=== PATIENT | male | born 1985 | race Native Hawaiian/Other Pacific Islander ===

== ENCOUNTER 2016-08-20 17:06 | Emergency (ER) | payer SELFPAY ==
[~2016-08-20] VITALS: Ht 182.9 cm; Wt 172.7 kg
[2016-08-20 17:21] VITALS: BP 138/102; PULSE 93; RESP 16; O2SAT 96
--- NOTE | 2016-08-20 18:05 | ED.REPORT ---
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 He was walking down the stairs when he rolled his right ankle to the side. He is able to walk with a slight limp. Nursing Notes Stated Complaint: RIGHT ANKLE PAIN Chief Complaint: Extremity Trauma Nursing Notes Reviewed: Yes Allergies: Coded Allergies: No Known Allergies (Unverified , 08/20/16) No Active Prescriptions or Reported Meds General Time Seen by MD: 18:04 Chief Complaint Ankle injury right Hx Obtained From: Patient Arrived By: Walk-in Onset Occurred: Just prior to arrival Symptom Duration: Since onset Location: : Ankle right Quality: Painful Severity: Current: Moderate Recent Healthcare: No recent doctor visit, No recent hospitalization Similar Sx Previous: No Past Medical History Past Medical History denies Past Surgical History denies Smoking History Unknown if Ever Smoker Social History Other Social History: Good social support, , Local resident Ambulatory Status Independent Review of Systems Musculoskeletal: Reports: Joint pain (right ankle), Joint swelling (right ankle ) Complete sys rev & neg: except as marked. Physical Exam Initial Vital Signs Vital Signs (First) Date Time Temp Pulse Resp B/P Pulse Ox O2 Delivery O2 Flow Rate FiO2 08/20/16 17:21 37.1 93 16 138/102 96 Room Air Initial VS: Reviewed General/Constitutional: Well-developed, Well-nourished Head / Eyes: Atraumatic, Normocephalic, PERRL ENT: Mucous membranes moist Respiratory: Breath sounds normal, Clear to auscultation Cardiovascular: Regular rate & rhythm, Heart sounds normal Abdomen / GI: Soft, Non-tender, No guarding, No rebound Lower Extremity / Pelvis / MS: Atraumatic, Inspection NL Right Ankle: Positive: Swelling present... lateral right ankle swelling no proximal swelling Interpretation & Diagnostics X-Ray Interpretation Xray Interpretation: IMPRESSION: No visualized acute fracture or dislocation. However, if clinical concern and/or pain persist, short interval imaging followup in 7-10 days is recommended, as occult injury cannot be definitively excluded. Dictated by: Yudy Sanchez M.D. on 08/20/2016 at 18:05 Approved by: Yudy Sanchez M.D. on 08/20/2016 at 18:06 X-Ray Ordered: Ankle right Interpretation / Wet Read by: Interpret - Radiologist Interpretation: Normal exam Re-Eval/Medical Decision Med Decision/Clinical Course No fracture seen on initial x-rays. We will immobilize and crutch training. Short course of [place] for pain. Orthopedic referral. Repeat x-rays in 7 days if pain persists. Counseled Regarding: Diagnosis, Lab results, Need for follow-up, When/why to return to ED Discharge & Departure Impression: Primary Impression: Right ankle sprain Encounter type: initial encounter Involved ligament of ankle: unspecified ligament Qualified Code: S93.401A - Sprain of unspecified ligament of right ankle, initial encounter Disposition: Home Discharge Condition All VS Reviewed: Yes Condition: Stable Patient Instructions: Ankle Sprain (GEN), Crutch Instructions (ED) Additional Instructions: Wear the boot and use crutches for all ambulation. Your x-rays did not show a fracture. You may take 1-2 [place] every 6 hours as needed for severe pain. Do not drive or drink alcohol consume acetaminophen for taking the [place]. If the pain persists beyond 7-10 days that he should have follow-up x-rays. Discuss this with either your primary care or the referral orthopedic surgeon. Either way call Sunday to set up a follow-up. Return if any problems or any worsening symptoms. Referrals: Herbert Martínez MD Attestation Portion of this note were transcribed by Jaci Elena. I, Dr. Stern, personally performed the history, physical exam, and medical decision-making: I reviewed and confirmed the accuracy for the information in the transcribed note. Signed by: ralph Perez, 08/20/16 1900 copies to: Herbert Martínez MD, Todd P DO Aug 20, 2016 18:05 Jaci Elena Aug 20, 2016 18:15
--- NOTE | 2016-08-20 18:08 | DRSVH ---
PROCEDURE: X-RAY RIGHT ANKLE, MINIMUM THREE VIEWS ([id number]) INDICATIONS: trauma, right ankle pain TECHNIQUE: 3 views of the ankle were acquired. COMPARISON: None. FINDINGS: Bones: No fractures or dislocations. Ankle mortise is normally aligned. No suspicious bony lesions . Soft tissues: No tibiotalar joint effusion. Achilles tendon appears normal. IMPRESSION: No visualized acute fracture or dislocation. However, if clinical concern and/or pain pe rsist, short interval imaging followup in 7-10 days is recommended, as occult injury cannot be defini tively excluded. Dictated by: Yudy Sanchez M.D. on 08/20/2016 at 18:05 Approved by: Yudy Sanchez M.D. on 08/20/2016 at 18:06
[2016-08-20] MEDS ORDERED: HYDROcodone-APAP 5-325 mg Tablet PO ONE (18:10)
== END 2016-08-20 18:35 | disposition home or self-care (01) ==
LOC: SED 17:06
DX: S93.401A Sprain of unspecified ligament of right ankle, initial encounter (principal); X50.0XXA Overexertion from strenuous movement or load, initial encounter; Y93.01 Activity, walking, marching and hiking; Y92.9 Unspecified place or not applicable; Y99.8 Other external cause status